=== PATIENT | male | born 1965 | race Two or more races ===

== ENCOUNTER 2025-05-22 09:52 | Emergency (ER) | payer MEDICAID | END 2025-05-22 10:17 | disposition home or self-care (01) | LOC: MW.ED 09:52 | DX: K02.9 Dental caries, unspecified (principal); R03.0 Elevated blood-pressure reading, without diagnosis of hypertension; Z95.5 Presence of coronary angioplasty implant and graft | CPT/HCPCS: 99282; 99283 ==